=== PATIENT | male | born 1980 | race Caucasian/White ===

== ENCOUNTER 2017-11-04 13:02 | Outpatient (CLI) | payer OTHER ==
--- NOTE | 2017-11-04 13:23 | RAD ---
THREE VIEWS OF THE LUMBOSACRAL SPINE: COMPARISON: None. HISTORY: Back injury in July 2016 lifting heavy things with pain in the low back. FINDINGS: Three views lumbosacral spine show slight wedging of the L1 vertebral body which may be congenital. This does not appear irregular as would be seen with a fracture. The other vertebral bodies demonstr ate normal height. There is no evidence of subluxation. A very small osteophyte is seen in the supe rior end plate of L3. Mild posterior facet arthrosis is seen bilaterally. Alignment is unchanged wi th flexion and extension. IMPRESSION: 1. Wedging of L1 may be congenital. 2. Mild degenerative changes of the lumbar spine with unchanged alignment with bending. POS: BAILEE
== END 2017-11-04 13:03 | disposition home or self-care (01) ==
LOC: TBSIIMAG 13:02
PROVIDERS: ATTEND Neurological Surgery
DX: M51.26 Other intervertebral disc displacement, lumbar region (principal); M47.896 Other spondylosis, lumbar region; M48.56XA Collapsed vertebra, not elsewhere classified, lumbar region, initial encounter for fracture
CPT/HCPCS: 72100

== ENCOUNTER 2019-12-11 12:29 | Emergency (ER) | payer OTHER, SELFPAY ==
--- NOTE | 2019-12-11 13:01 | CT ---
CT HEAD WITHOUT IV CONTRAST COMPARISON: None HISTORY: Syncopal episodes. Patient reports feet, hands, and facial numbness during these episodes. TECHNIQUE: Axial CT imaging at 5 mm intervals from vertex through skull base without contrast FINDINGS: Approximately 5 mm low-density focus in the inferolateral left frontal lobe just above the level of t he greater wing of the sphenoid bone which is of uncertain etiology or clinical significance. There is no evidence of an acute infarction, hemorrhage, mass effect, or midline shift. The ventricular sys tem is normal in size, shape, and position. Mucosal thickening is seen in the ethmoidal air cells bilaterally. Visualized mastoid air cells are c lear. Osseous structures appear intact. IMPRESSION: 1. Subcentimeter low-density focus of uncertain etiology or clinical significance in the left frontal lobe. This is not likely the etiology for patient's syncopal episodes, but a follow-up nonemergent MRI brain with and without IV contrast is recommended. 2. No acute intracranial abnormality. 3. Sinus disease.
[2019-12-11 13:16] LABS: #Basophils 0.1 thou/uL (0.0-0.2); #Eosinphils 0.2 thou/uL (0.0-0.7); #Monocytes 0.8 thou/uL (0.11-0.59); #Neutrophils 4.7 thou/uL (1.40-6.50); %Basophils 1.2 % (0.0-1.0); %Eosinophils 2.9 % (0.0-10.0); %Lymphocytes 25.4 % (21.0-51.0); %Monocytes 9.8 % (0.0-10.0); %Neutrophils 60.7 % (42.0-75.0); Hemoglobin 15.4 g/dL (14.0-18.0); Mean Corpuscular HGB CONC 33.1 g/dL (32.0-36.0); Mean Corpuscular Hemoglobin 29.7 pg (27.0-31.0); Mean Corpuscular Volume 89.5 fL (78.0-98.0); Mean Platelet Volume 7.6 fL (7.4-10.4); Platelet Count 269 thou/uL (130-400); RBC Distribution Width 11.8 % (11.5-14.5); Red Blood Cell (RBC) Count 5.18 mill/uL (4.70-6.10); White Blood Cell (WBC) Count 7.7 thou/uL (4.8-10.8)
[2019-12-11 13:30] LABS: Amphetamine Detected (NotDetected); Barbiturates Screen Not Detected (NotDetected); Benzodiazepine Screen Not Detected (NotDetected); Cocaine Metabolite Screen Not Detected (NotDetected); Medtox Control Line Valid? VALID (VALID); Medtox Reader # READER 4; Methadone Not Detected (NotDetected); Methamphetamine Detected (NotDetected); Opiate Screen Not Detected (NotDetected); Oxycodone Screen Not Detected (NotDetected); Phencyclidine (PCP) Not Detected (NotDetected); THC/Cannabinoid Screen Detected (NotDetected); Tricyclic Screen Not Detected (NotDetected)
[2019-12-11 13:36] LABS: ALT (SGPT) 25 U/L (8-55); AST (SGOT) 17 U/L (5-34); Albumin 3.9 g/dL (3.5-5.0); Alkaline Phosphatase 68 U/L (40-110); Anion Gap 11 mmol/L (10-20); BUN (Urea Nitrogen) 11 mg/dL (8.9-20.6); Bilirubin, Total 0.6 mg/dL (0.2-1.2); Calc. Creatinine Clearance 0 mL/min (70-130); Calcium 8.8 mg/dL (7.8-10.44); Carbon Dioxide 28 mmol/L (22-29); Chloride 105 mmol/L (98-107); Estimated GFR-MDRD Greater than 90; Globulin 2.6 g/dL (2.4-3.5); Glucose 66 mg/dL (70-105); Protein, Total 6.5 g/dL (6.0-8.3); Sodium 140 mmol/L (136-145)
--- NOTE | 2019-12-15 15:34 | EKG ---
Test Reason : Blood Pressure : / mmHG Vent. Rate : 061 BPM Atrial Rate : 061 BPM P-R Int : 178 ms QRS Dur : 106 ms QT Int : 388 ms P-R-T Axes : 002 036 058 degrees QTc Int : 390 ms Normal sinus rhythm Normal ECG Confirmed by MONAE MELO ([id number]), fan mail editor ERICK APARICIO ([id number]) on 12/15/2019 3:33:48 PM Referred By: Confirmed By:MONAE MELO
== END 2019-12-11 15:02 | disposition home or self-care (01) ==
LOC: ERS 12:29
DX: T67.5XXA Heat exhaustion, unspecified, initial encounter (principal); E86.0 Dehydration; F15.10 Other stimulant abuse, uncomplicated; R55 Syncope and collapse; F17.210 Nicotine dependence, cigarettes, uncomplicated
CPT/HCPCS: 70450; 80053; 80306; 84484; 85025; 93005; 96360